=== PATIENT | male | born 1985 | race Caucasian/White ===

== ENCOUNTER 2020-10-16 13:08 | Inpatient (IN) | payer OTHER ==
[2020-10-16 15:50] VITALS: BMI 25.2
[2020-10-16] MEDS ORDERED: MAGNESIUM CITRATE 300 ML BOTTLE PO PRN (19:56)
[2020-10-16] MEDS ORDERED: NICOTINE POLACRILEX 2 MG GUM BUC PRN (19:56)
[2020-10-16] MEDS ORDERED: METHOCARBAMOL 500 MG TABLET PO PRN (19:56)
[2020-10-16] MEDS ORDERED: methaDONE HCL 10 MG TABLET (FOR DETOX USE ONLY) PO ONE (19:56)
[2020-10-16] MEDS ORDERED: NICOTINE 10 MG CARTRIDGE (INHALER) IH PRN (19:56)
[2020-10-16] MEDS ORDERED: MAGNESIUM HYDROX 2400MG/30ML ORAL SUSPENSION 30 ML CUP PO PRN (19:56)
[2020-10-16] MEDS ORDERED: NALOXONE HCL 0.4 MG/ML VIAL IM PRN (19:56)
[2020-10-16] MEDS ORDERED: IBUPROFEN 400 MG TABLET (FP) PO PRN (19:56)
[2020-10-16] MEDS ORDERED: MENTHOL/PHENOL 1 EACH UD MM PRN (19:56)
[2020-10-16] MEDS ORDERED: BISMUTH SUBSALICYLATE 524 MG/30 ML PO PRN (19:56)
[2020-10-16] MEDS ORDERED: MAG HYDROX/AL HYDROX/SIMETH 30 ML UNIT-DOSE CUP PO PRN (19:56)
[2020-10-16] MEDS ORDERED: ACETAMINOPHEN 325 MG TABLET (FP) PO PRN ×2 (19:56)
[2020-10-16] MEDS ORDERED: cloNIDine HCL 0.1 MG TABLET PO PRN (19:56)
[2020-10-16] MEDS ORDERED: TRIMETHOBENZAMIDE HCL 200MG/2ML INJ IM ONE (22:35)
[2020-10-16] MEDS ORDERED: diazePAM 5 MG TABLET ONE (23:42)
[2020-10-16] MEDS ORDERED: methaDONE HCL 10 MG TABLET (FOR DETOX USE ONLY) ONE (23:43)
[2020-10-16] MEDS: MELATONIN 5 MG TABLETS PO SCH (23:45)
[2020-10-16] MEDS: diazePAM 5 MG TABLET PO SCH (23:45)
[2020-10-16] MEDS: THIAMINE HCL 100 MG TABLET (FP) PO SCH (23:45)
[2020-10-17] MEDS ORDERED: diazePAM 5 MG TABLET ONE ×2 (06:21→10:47)
[2020-10-17] MEDS: diazePAM 5 MG TABLET PO SCH ×4 (06:27→22:37)
[2020-10-17] MEDS ORDERED: methaDONE HCL 10 MG TABLET (FOR DETOX USE ONLY) ONE (10:47)
[2020-10-17] MEDS: PRENATAL VITAMINS W/ FOLIC ACID TABLET (FP) PO SCH (10:59)
[2020-10-17] MEDS: THIAMINE HCL 100 MG TABLET (FP) PO SCH (22:37)
[2020-10-17] MEDS: MELATONIN 5 MG TABLETS PO SCH (22:37)
[2020-10-18] MEDS: diazePAM 5 MG TABLET PO SCH ×3 (06:34→23:25)
[2020-10-18] MEDS ORDERED: methaDONE HCL 10 MG TABLET (FOR DETOX USE ONLY) PO ONE (10:00)
[2020-10-18] MEDS: PRENATAL VITAMINS W/ FOLIC ACID TABLET (FP) PO SCH (11:01)
[2020-10-18] MEDS: diazePAM 5 MG TABLET PO PRN (11:04)
[2020-10-18] MEDS: THIAMINE HCL 100 MG TABLET (FP) PO SCH (23:25)
[2020-10-18] MEDS: MELATONIN 5 MG TABLETS PO SCH (23:25)
[2020-10-19] MEDS: diazePAM 5 MG TABLET PO SCH ×2 (06:04→17:38)
[2020-10-19] MEDS ORDERED: methaDONE HCL 10 MG TABLET (FOR DETOX USE ONLY) ONE (09:49)
[2020-10-19] MEDS: PRENATAL VITAMINS W/ FOLIC ACID TABLET (FP) PO SCH (10:37)
[2020-10-19] MEDS: amLODIPine BESYLATE 5 MG TABLET (FP) PO SCH (10:39)
[2020-10-19] MEDS: diazePAM 5 MG TABLET PO PRN (10:39)
[2020-10-19] MEDS: THIAMINE HCL 100 MG TABLET (FP) PO SCH (21:16)
[2020-10-19] MEDS: MELATONIN 5 MG TABLETS PO SCH (21:17)
[2020-10-20] MEDS ORDERED: diazePAM 5 MG TABLET PO ONE (06:00)
[2020-10-20] MEDS ORDERED: methaDONE HCL 10 MG TABLET (FOR DETOX USE ONLY) PO ONE (10:00)
[2020-10-20] MEDS: amLODIPine BESYLATE 5 MG TABLET (FP) PO SCH (10:28)
[2020-10-20] MEDS: PRENATAL VITAMINS W/ FOLIC ACID TABLET (FP) PO SCH (10:28)
[2020-10-20] MEDS: MELATONIN 5 MG TABLETS PO SCH (22:25)
[2020-10-20] MEDS: THIAMINE HCL 100 MG TABLET (FP) PO SCH (22:26)
[2020-10-21 08:42] VITALS: BP 117/71; PULSE 72; TEMP 97.3
== END 2020-10-21 09:02 | disposition home or self-care (01) | DRG 773 ==
LOC: YASAS 13:08 → Y6N 10-17 13:43
PROVIDERS: ADMIT Allergy & Immunology; ATTEND Allergy & Immunology
PROC: HZ2ZZZZ Detoxification Services for Substance Abuse Treatment (ICD-10-PCS; principal; 2020-10-17)
DX: F11.23 Opioid dependence with withdrawal (principal); F13.20 Sedative, hypnotic or anxiolytic dependence, uncomplicated; F14.20 Cocaine dependence, uncomplicated; F17.213 Nicotine dependence, cigarettes, with withdrawal; F41.9 Anxiety disorder, unspecified; I10 Essential (primary) hypertension; Z90.49 Acquired absence of other specified parts of digestive tract
CPT/HCPCS: 93005; 93010; C9803; U0003; U0005